=== PATIENT | male | born 1995 | race Two or more races ===

== ENCOUNTER 2019-10-09 15:13 | Emergency (ER) | payer MEDICAID ==
[~2019-10-09] VITALS: Ht 180.3 cm; Wt 67.0 kg
[2019-10-09] MEDS ORDERED: IBUPROFEN 600MG TABLET PO ONE (15:45)
[2019-10-09 17:00] VITALS: BP 120/81
== END 2019-10-09 17:08 | disposition home or self-care (01) ==
LOC: ER 15:13
DX: Z20.828 Contact with and (suspected) exposure to other viral communicable diseases (principal); B34.9 Viral infection, unspecified
CPT/HCPCS: 71045; 99283